=== PATIENT | male | born 1965 | race Caucasian/White ===

== ENCOUNTER 2016-10-12 22:32 | Emergency (ER) | payer OTHER ==
[~2016-10-12] VITALS: Ht 182.9 cm; Wt 68.2 kg
[2016-10-12 22:38] VITALS: Ht 182.9 cm; Wt 68.2 kg
[2016-10-13] MEDS ORDERED: AZITHROMYCIN 250 MG TAB PO ONE (00:30)
[2016-10-13] MEDS ORDERED: CEFTRIAXONE 250 MG INJ IM ONE (00:30)
[2016-10-13 01:14] LABS: URINE BLOOD (Dip) POC Trace-intact (NEGATIVE)
[2016-10-13] MEDS ORDERED: CIPR500T4 PO (01:29)
--- NOTE | 2016-10-13 01:36 | ERD ---
ER Documentation Chief Complaint Date/Time DATE: 10/13/16 TIME: 01:31 Chief Complaint DISCHARGE IN PENILE AREA +BURNING SINCE YESTERDAY HPI This is a 51-year-old male presents to the emergency department today complaining of discharge from his penis for the past couple of days. States he does have some pain with urination. States he is HIV positive and has been having unprotected sex with multiple partners. States his partners are aware that he is HIV positive.Denies any fevers or chills, testicular, abdominal pain. ROS All systems reviewed and are negative except as per history of present illness. Medications Home Meds Active Scripts Ciprofloxacin Hcl* (Ciprofloxacin Hcl*) 500 Mg Tablet, 500 MG PO BID for 10 Days , TAB Prov:CASTRO IRIZARRY PA-C 10/13/16 Allergies Allergies: Coded Allergies: No Known Allergy (Unverified , 10/12/16) PMhx/Soc Medical and Surgical Hx: pt denies Surgical Hx History of Surgery: No Anesthesia Reaction: No Hx Neurological Disorder: No Hx Respiratory Disorders: No Hx Cardiac Disorders: No Hx Psychiatric Problems: No Hx Miscellaneous Medical Probl: Yes (HIV) Hx Alcohol Use: No Hx Substance Use: No Hx Tobacco Use: Yes Smoking Status: Current every day smoker Physical Exam Vitals Vital Signs Date Time Temp Pulse Resp B/P Pulse Ox O2 Delivery O2 Flow Rate FiO2 10/12/16 22:38 97.8 94 18 127/86 99 Physical Exam Const: NAD Head: Atraumatic Eyes: Normal Conjunctiva ENT: Normal External Ears, Nose and Mouth. Neck: Full range of motion..~ No meningismus. Resp: Clear to auscultation bilaterally Cardio: Regular rate and rhythm, no murmurs Abd: Soft, non tender, non distended. Normal bowel sounds : Uncircumcised penis with scant discharge. Nontender testicles. Testicles descended bilaterally. Skin: No petechiae or rashes Back: No midline or flank tenderness Ext: No cyanosis, or edema Neur: Awake and alert Psych: Normal Mood and Affect Results 24 hrs Laboratory Tests Test 10/13/16 01:19 Bedside Urine pH (LAB) 7.0 Bedside Urine Protein (LAB) 1+ Bedside Urine Glucose (UA) Negative Bedside Urine Ketones (LAB) Negative Bedside Urine Blood Trace-intact Bedside Urine Nitrite (LAB) Negative Bedside Urine Leukocyte Esterase (L 2+ Current Medications Medications (Trade) Dose Ordered Sig/Abdirashid Route PRN Reason Start Time Stop Time Status Last Admin Dose Admin Azithromycin (Zithromax) 1,000 mg ONCE ONCE PO 10/13/16 00:30 10/13/16 00:31 DC 10/13/16 01:26 Ceftriaxone Sodium (Rocephin) 250 mg ONCE ONCE IM 10/13/16 00:30 10/13/16 00:31 DC 10/13/16 01:26 Procedures/MDM This is a 51-year-old male presents the emergency department today complaining of discharge from his penis for the past couple of days and some burning and pain with urination. Patient is afebrile and otherwise well-appearing. He does not have any abdominal pain or testicular pain. Do not feel he requires further workup or imaging at this time. I did obtain a UA. Patient was treated prophylactically for gonorrhea and chlamydia with ceftriaxone and azithromycin. UA shows 2+ leukocyte esterase. Urine sent for gonorrhea and chlamydia. Patient was given a prescription for Cipro for UTI. His symptoms at this time is consistent with Urethritis and UTI. Patient was instructed not to have unprotected sex. He was also instructed to have all sexual partners tested and tested. Patient understood. At this time the patient is stable for discharge and outpatient management. Patient should follow up with their PCP in the next 1-2 days. They may return to the emergency department sooner for any persistent or worsening of symptoms. Patient understood and agreed with the plan. Departure Diagnosis: Primary Impression: Urethritis Additional Impression: UTI (urinary tract infection) Urinary tract infection type: site unspecified Hematuria presence: without hematuria Qualified Code: N39.0 - Urinary tract infection without hematuria, site unspecified Condition: Fair Patient Instructions: Understanding Urinary Tract Infections (UTIs), Older Adults and STDs Additional Instructions: Call your primary care doctor TOMORROW for an appointment during the next 1-2 days.See the doctor sooner or return here if your condition worsens before your appointment time. Take antibiotics as prescribed for urinary tract infection Do not have unprotected sex. Make sure all sexual partners get treated CASTRO IRIZARRY PA-C Oct 13, 2016 01:35
[2016-10-13 01:48] VITALS: BP 127/86; PULSE 66; RESP 18
== END 2016-10-13 01:49 | disposition home or self-care (01) ==
LOC: FTE 22:32
DX: N34.2 Other urethritis (principal); F17.210 Nicotine dependence, cigarettes, uncomplicated
CPT/HCPCS: 81003; 87591; 96372; J0696; Z7502; Z7610

== ENCOUNTER 2018-09-30 12:22 | Emergency (ER) | payer OTHER ==
[~2018-09-30] VITALS: Ht 185.4 cm; Wt 60.9 kg
[~2018-09-30 12:22] MED LIST: AMOX1TAB10 PO; CIPR500T4 PO; CLIN300C10 PO; DOXY100T20 PO; ELVI1TAB3 PO; LACT1CAP57 PO
[2018-09-30 12:39] VITALS: BP 108/72; PULSE 92; RESP 18; Ht 185.4 cm; Wt 60.9 kg
== END 2018-09-30 14:21 | disposition left against medical advice (07) ==
LOC: E/R 12:22
DX: Z53.21 Procedure and treatment not carried out due to patient leaving prior to being seen by health care provider (principal)

== ENCOUNTER 2018-09-30 23:04 | Inpatient (IN) | payer OTHER ==
[~2018-09-30] VITALS: Ht 182.9 cm; Wt 60.7 kg
[~2018-09-30 23:04] MED LIST changes: +DOXY-214 PO; -DOXY100T20 PO
[2018-09-30 23:24] VITALS: Ht 182.9 cm; Wt 60.7 kg
[2018-10-01] MEDS ORDERED: morphine 4 MG/ML VIAL IV STA (03:16)
[2018-10-01] MEDS ORDERED: ONDANSETRON 4 MG INJ IV STA (03:16)
[2018-10-01] MEDS ORDERED: ACETAMINOPHEN 325 MG TAB PO PRN (04:00)
[2018-10-01] MEDS ORDERED: VANCOMYCIN IV PER PHARMACY XX SCH (04:00)
[2018-10-01] MEDS ORDERED: HYDROCODONE/APAP (5/325) TAB PO PRN (04:00)
[2018-10-01] MEDS ORDERED: DOCUSATE SODIUM 100 MG CAP PO PRN (04:00)
[2018-10-01] MEDS ORDERED: ONDANSETRON 4 MG INJ IV PRN (04:00)
[2018-10-01] MEDS ORDERED: NACL 0.9% 3 ML SYG IV SCH (04:00)
[2018-10-01] MEDS ORDERED: BISACODYL (EC) 5 MG TAB PO PRN (04:00)
[2018-10-01] MEDS ORDERED: morphine 2 MG INJ IV PRN (04:00)
[2018-10-01 05:49] VITALS: BMI 18.1
[2018-10-01 05:56] VITALS: BP 125/72; PULSE 88; RESP 18
[2018-10-01] MEDS: PIPER-TAZO 3.375 GM IV (PMX) 100 ML IVPB SCH ×3 (06:03→17:24)
[2018-10-01] MEDS ORDERED: VANCOMYCIN 1.25 GM/NS 250 ML 250 ML IVPB ONE (06:30)
[2018-10-01 08:45] VITALS: BP 117/80; PULSE 82; RESP 16
[2018-10-01] MEDS: ENOXAPARIN 40 MG/0.4 ML SYG SC SCH (09:52)
[2018-10-01] MEDS: ELVITEG/COBI/EMTRIC/TENOFO ALA 1 EACH TABLET PO SCH (11:18)
[2018-10-01 14:10] VITALS: BP 118/76; PULSE 77; RESP 16
[2018-10-01 20:32] VITALS: BP 128/78; PULSE 98; RESP 16
[2018-10-01] MEDS ORDERED: PERMETHRIN 5% 60 GM CR TOP ONE (21:00)
[2018-10-01] MEDS: VANCOMYCIN 1 GM 250 ML IVPB SCH (21:01)
[2018-10-02] MEDS: PIPER-TAZO 3.375 GM IV (PMX) 100 ML IVPB SCH ×3 (00:02→12:26)
[2018-10-02 04:13] VITALS: BP 116/70; PULSE 70; RESP 18
[2018-10-02 07:56] VITALS: BP 117/69; PULSE 82; RESP 20
[2018-10-02] MEDS: VANCOMYCIN 1 GM 250 ML IVPB SCH (08:34)
[2018-10-02] MEDS: ELVITEG/COBI/EMTRIC/TENOFO ALA 1 EACH TABLET PO SCH (08:34)
[2018-10-02] MEDS: ENOXAPARIN 40 MG/0.4 ML SYG SC SCH (08:44)
[2018-10-02 13:08] VITALS: BP 124/85; PULSE 65; RESP 16
[2018-10-02] MEDS ORDERED: METHYLPREDNISOLONE 125 MG INJ IV ONE (13:30)
[2018-10-02] MEDS ORDERED: DIPHENHYDRAMINE 50 MG INJ IV PRN (13:30)
[2018-10-02] MEDS ORDERED: NEOMYCIN TOP SCH (14:30)
[2018-10-02] MEDS ORDERED: BACITRACIN TOP SCH (14:30)
[2018-10-02] MEDS ORDERED: POLYMYXIN B TOP SCH (14:30)
[2018-10-02] MEDS ORDERED: HYDROCORTISONE 2.5% 28.35 GM OINT TOP SCH (14:30)
[2018-10-02] MEDS ORDERED: DAKINS 0.0125%(1/40) 473 ML SOLUTION TP SCH (14:30)
[2018-10-02] MEDS ORDERED: HYDROCORTISONE TOP SCH (14:30)
[2018-10-02] MEDS ORDERED: FLUCONAZOLE 100 MG TAB PO SCH (14:30)
[2018-10-02] MEDS ORDERED: ACYCLOVIR 400 MG TAB PO SCH (21:00)
[2018-10-02] MEDS ORDERED: SILVER SULFADIAZINE 1% 25 GM CR TOP SCH (21:00)
[2018-10-02] MEDS ORDERED: TRIMETHOPRIM/SULFAMETHOXAZOLE 15 ML in DEXTROSE 5% 500 ML IVPB SCH (22:00)
== END 2018-10-02 15:23 | disposition left against medical advice (07) | DRG 603 ==
LOC: FTE 23:04 → 2NE 10-01 03:40
PROVIDERS: ADMIT Family Medicine; ATTEND Family Medicine
DX: L03.116 Cellulitis of left lower limb (principal); I87.313 Chronic venous hypertension (idiopathic) with ulcer of bilateral lower extremity; L97.829 Non-pressure chronic ulcer of other part of left lower leg with unspecified severity; L97.819 Non-pressure chronic ulcer of other part of right lower leg with unspecified severity; B20 Human immunodeficiency virus [HIV] disease; R64 Cachexia; Z68.1 Body mass index [BMI] 19.9 or less, adult; L03.115 Cellulitis of right lower limb; I87.2 Venous insufficiency (chronic) (peripheral); F17.200 Nicotine dependence, unspecified, uncomplicated; B19.20 Unspecified viral hepatitis C without hepatic coma; B00.1 Herpesviral vesicular dermatitis; Z59.0 Homelessness; Z91.14 Patient's other noncompliance with medication regimen
CPT/HCPCS: 36415; 73590; 80053; 81003; 83690; 85025; 86360; 86592; 86701; 86703; 86706; 86803; 87340; 87536; 93922; 93970; J1200; J1650; J2270; J2405; J2543; J2930; J3370; J7060